=== PATIENT | female | born 1940 | race Caucasian/White ===

== ENCOUNTER 2017-05-08 10:18 | Inpatient (IN) | payer MEDICARE, OTHER ==
[2017-05-08] MEDS ORDERED: IPRATROPIUM/ALBUTEROL 3 ML NEB INH STA (11:10)
[2017-05-08] MEDS ORDERED: methylPREDNISolone SUCCINATE 125 MG/2 ML VIAL IVP STA (11:50)
[2017-05-08] MEDS ORDERED: cefTRIAXone 1 GM in SODIUM CHLORIDE 0.9% MINIBAG 100 ML IV STA (11:51)
[2017-05-08] MEDS ORDERED: SODIUM CHLORIDE 0.9% 500 ML IV ONE (11:51)
--- NOTE | 2017-05-08 11:53 | ED Physician Documentation ---
PD HPI DYSPNEA - Stated complaint Stated Complaint: SOA - Chief complaint Chief Complaint: Resp - History obtained from History obtained from: Patient, Family - History of Present Illness Timing - onset: How many days ago (7) Timing - onset during: Rest Timing - duration: Days (7) Timing - details: Gradual onset, Still present Inciting event(s): URI Improved by: Inhaler/neb, Steroids Worsened by: Exertion Associated symptoms: Cough, Wheezing Similar symptoms before: Diagnosis (COPD) Recently seen: Clinic - Additional information Additional information: Female with a history of COPD has developed cough and congestion she is producing yellow phlegm she is gone into see her doctor about 5 days ago was placed on a course of prednisone 40 mg per day and azithromycin. She felt she was doing somewhat better the following day and then on Thursday evening she began to have increasing shortness of breath increasing cough and this is persistently worsened over the last 2 days she is coming to the emergency department now for treatment. She really does not want to be in the hospital. She is coughing up thick yellow phlegm and does get some mucus plugging that causes worsening of her breathing. Review of Systems Constitutional: denies: Fever Eyes: denies: Decreased vision Ears: denies: Ear pain Nose: reports: Rhinorrhea / runny nose, Congestion Throat: denies: Sore throat Cardiac: denies: Chest pain / pressure, Palpitations Respiratory: reports: Dyspnea, Cough, Wheezing GI: denies: Abdominal Pain, Nausea, Vomiting : denies: Dysuria Skin: denies: Rash Musculoskeletal: denies: Neck pain, Back pain, Extremity pain Neurologic: reports: Generalized weakness. denies: Focal weakness, Numbness PD PAST MEDICAL HISTORY - Past Medical History Cardiovascular: None, Other Respiratory: COPD, Shortness of breath Endocrine/Autoimmune: HyPOthyroidism GI: None : None HEENT: None, Other Psych: None, Claustrophobia Musculoskeletal: Osteoarthritis Derm: None - Past Surgical History Past Surgical History: Yes General: Other HEENT: Tonsil/Adenoidectomy, Other - Present Medications Home Medications: Ambulatory Orders Medication Instructions Recorded Confirmed Thyroid,Pork [[place] Thyroid] 90 mcg ORAL DAILY 10/26/13 06/11/15 Aspirin [Adult Low Dose Aspirin EC] 81 mg PO DAILY 06/11/15 06/11/15 Cholecalciferol (Vitamin D3) 1,000 unit PO DAILY 06/11/15 06/11/15 [Vitamin D] Gabapentin 0 mg PO 05/08/17 - Allergies Allergies/Adverse Reactions: Allergies Allergy/AdvReac Type Severity Reaction Status Date / Time pollen extracts Allergy Mild Respiratory Verified 05/08/17 10:33 - Social History Does the pt smoke?: Yes Smoking Status: Current every day smoker Does the pt drink ETOH?: No PD ED PE NORMAL - Vitals Vital signs reviewed: Yes (hypertensive and hypoxic) - General General: Alert and oriented X 3, Well developed/nourished, Other (tachypneic at rest talking in abreviated sentences nasal quality to the voice. ) - HEENT HEENT: Atraumatic, PERRL, EOMI, Other (both TM's are inflamed with rounding of the umbo. The mucous membranes are dry) - Neck Neck: Supple, no meningeal sign, No bony TTP - Cardiac Cardiac: RRR, No murmur - Respiratory Respiratory: Other (Tachypnea with tight wheezes and rhonchi scattered throughout.) - Abdomen Abdomen: Soft, Non tender - Back Back: No CVA TTP, No spinal TTP - Derm Derm: Normal color, Warm and dry, No rash - Extremities Extremities: No deformity, No edema - Neuro Neuro: Alert and oriented X 3, No motor deficit, No sensory deficit, Normal speech Eye Opening: Spontaneous Motor: Obeys Commands Verbal: Oriented GCS Score: 15 - Psych Psych: Normal mood, Normal affect Results - Vitals Vitals: Vital Signs - 24 hr 05/08/17 05/08/17 05/08/17 10:23 11:26 13:11 Temperature 36.7 C Heart Rate 86 71 80 Respiratory 24 20 20 Rate Blood Pressure 189/74 H 129/79 O2 Saturation 91 L 95 05/08/17 05/08/17 13:23 15:26 Temperature Heart Rate 80 80 Respiratory 20 18 Rate Blood Pressure O2 Saturation Oxygen O2 Source Room air - EKG (time done) 1032 Rate: Rate (enter#) (73) Rhythm: NSR Intervals: RBBB Ischemia: Normal ST segments Compare to prior EKG: Old EKG unavailable Computer interpretation: Agree with computer - Labs Labs: Laboratory Tests 05/08/17 05/08/17 05/08/17 12:10 12:10 12:10 WBC 20.1 H RBC 4.07 L Hgb 12.4 Hct 36.6 L MCV 89.9 MCH 30.5 MCHC 33.9 RDW 13.5 Plt Count 460 H MPV 6.6 L Neut # Not Reportable Lymph # Not Reportable [place] # Not Reportable Eos # Not Reportable Baso # Not Reportable Absolute Nucleated RBC Not Reportable Total Counted 100 Band Neuts % (Manual) 3 Reactive Lymphs % (Man) 10 Abnorm Lymph % (Manual) 0 Myelocytes % 2 H Nucleated RBC % Not Reportable Neutrophils # (Manual) 16.3 H Lymphocytes # (Manual) 2.6 Monocytes # (Manual) 0.8 Eosinophils # (Manual) 0.0 Basophils # (Manual) 0.0 Differential Comment MANUAL DIFFERENTIAL Platelet Morphology RARE GIANT PLATELETS RBC Morph Micro Appear 1+ ANISOCYTOSIS Sodium 136 Potassium 2.5 L* Chloride 100 L Carbon Dioxide 26 Anion Gap 10.0 BUN 16 Creatinine 0.7 Estimated GFR (MDRD) 81 L Glucose 129 H Calcium 9.3 Total Bilirubin 0.6 AST 24 ALT 24 Alkaline Phosphatase 80 Troponin I < 0.04 Total Protein 7.4 Albumin 3.8 Globulin 3.6 Albumin/Globulin Ratio 1.1 Lipase 23 Urine Color Urine Clarity Urine pH Ur Specific [place] Urine Protein Urine Glucose (UA) Urine Ketones Urine Occult Blood Urine Nitrite Urine Bilirubin Urine Urobilinogen Ur Leukocyte Esterase Ur Microscopic Review Urine Culture Comments 05/08/17 14:10 WBC RBC Hgb Hct MCV MCH MCHC RDW Plt Count MPV Neut # Lymph # [place] # Eos # Baso # Absolute Nucleated RBC Total Counted Band Neuts % (Manual) Reactive Lymphs % (Man) Abnorm Lymph % (Manual) Myelocytes % Nucleated RBC % Neutrophils # (Manual) Lymphocytes # (Manual) Monocytes # (Manual) Eosinophils # (Manual) Basophils # (Manual) Differential Comment Platelet Morphology RBC Morph Micro Appear Sodium Potassium Chloride Carbon Dioxide Anion Gap BUN Creatinine Estimated GFR (MDRD) Glucose Calcium Total Bilirubin AST ALT Alkaline Phosphatase Troponin I Total Protein Albumin Globulin Albumin/Globulin Ratio Lipase Urine Color YELLOW Urine Clarity CLEAR Urine pH 5.5 Ur Specific [place] <=1.005 Urine Protein NEGATIVE Urine Glucose (UA) NEGATIVE Urine Ketones NEGATIVE Urine Occult Blood NEGATIVE Urine Nitrite NEGATIVE Urine Bilirubin NEGATIVE Urine Urobilinogen 0.2 (NORMAL) Ur Leukocyte Esterase NEGATIVE Ur Microscopic Review NOT INDICATED Urine Culture Comments NOT INDICATED - Rads (name of study) 2 veiw chest Radiology: Prelim report reviewed (Impression: 1. Hyperinflated lungs consistent with obstructive lung disease. No acute superimposed process is appreciated.), EMP read indepedently, See rad report Procedures - IVC sono (time) 1145 Bedside IVC sono: IVC measures (cm) (1.00), IVC collapsed c insp (cm) (0.42), Dehydration (mild est 500ml deficit) PD MEDICAL DECISION MAKING - ED course Complexity details: reviewed old records, reviewed results, re-evaluated patient , considered differential, d/w patient, d/w family ED course: 77-year-old female with a history of COPD has exacerbation of her COPD and a cough producing phlegm. She is not improved on the fourth day of azithromycin and prednisone at 40 mg per day. Here in the emergency department an IV is begun she is given 125 mg of Solu-Medrol, rocephin 1gm IV and a DuoNeb treatment is administered. She has improvement with treatment and wheezing is more apparent now. She requires repeat treatments and struggles to get to the bathroom. Her room air sat is up to 91-92 %. Her respiratory rate improves but she remains tachypneic. Her CXR appears hazy in the right base but not consolidated. Her WBC is markedly elevated and her potassium is low. Despite prolonged treatment in the ED the patient remains tachypneic with wheezing and admission is sought. Departure - Departure Disposition: ED Place in Observation Clinical Impression: COPD with exacerbation
[2017-05-08 12:30] LABS: BASOPHILS % (AUTO) 0.1 %; HGB - HEMOGLOBIN 12.4 g/dL (12.0-16.0); MEAN CORPUSCULAR HEMOGLOBIN 30.5 pg (27.0-31.0); MEAN CORPUSCULAR HGB CONC 33.9 g/dL (32.0-36.0); MEAN CORPUSCULAR VOLUME 89.9 fL (81.0-99.0); MEAN PLATELET VOLUME 6.6 fL (7.9-10.8); MONOCYTES % (AUTO) 4.7 %; NEUTROPHILS % (AUTO) 83.2 %; PLT - PLATELET COUNT 460 10^3/uL (130-450); RED BLOOD COUNT 4.07 10^6/uL (4.20-5.40); RED CELL DISTRIBUTION WIDTH 13.5 % (12.0-15.0); WHITE BLOOD COUNT 20.1 x10^3/uL (4.8-10.8)
--- NOTE | 2017-05-08 12:30 | XRAY Report ---
EXAM: CHEST RADIOGRAPHY EXAM DATE: 05/08/2017 12:09 PM. CLINICAL HISTORY: Wheezes and rhonchi. COMPARISON: 06/11/2015. TECHNIQUE: 2 views. FINDINGS: Lungs/Pleura: The lungs are hyperinflated with flattening of the diaphragms. No acute infiltrate or c onsolidation is appreciated. No pneumothorax or pleural effusion is evident. Mediastinum: Normal heart size. Atherosclerotic calcification in the aortic arch. Other: Interval cervical spine surgery. IMPRESSION: 1. Hyperinflated lungs consistent with obstructive lung disease. 2. No acute superimposed process is appreciated. [facility] Referring Provider Line: [phone] SITE ID: [id number]
[2017-05-08 12:37] LABS: ABNORMAL LYMPHS % (MANUAL) 0 %
[2017-05-08 12:39] LABS: ALBUMIN 3.8 g/dL (3.2-5.5); ALBUMIN/GLOBULIN RATIO 1.1 (1.0-2.2); BILIRUBIN,TOTAL 0.6 mg/dL (0.2-1.0); CALCIUM 9.3 mg/dL (8.5-10.3); CREATININE 0.7 mg/dL (0.4-1.0); TOTAL PROTEIN 7.4 g/dL (6.7-8.2)
[2017-05-08] MEDS ORDERED: ALBUTEROL NEB 2.5 MG/3 ML INH STA ×2 (12:59→15:11)
[2017-05-08 13:02] LABS: BAND NEUTROPHILS % (MANUAL) 3 %; LYMPHOCYTES # (MANUAL) 2.6 10^3/uL (1.5-3.5); LYMPHOCYTES % (MANUAL) 3 %; MONOCYTES # (MANUAL) 0.8 10^3/uL (0.0-1.0); MYELOCYTES % (MANUAL) 2 %; NEUTROPHILS # (MANUAL) 16.3 10^3/uL (1.5-6.6); NEUTROPHILS % (MANUAL) 78 %
[2017-05-08 13:03] LABS: DIFFERENTIAL COMMENT MANUAL DIFFERENTIAL; RBC MORPHOLOGY (MULTIPLE) 1+ ANISOCYTOSIS (NORMAL)
[2017-05-08 13:04] LABS: PLATELET MORPHOLOGY RARE GIANT PLATELETS (NORMAL)
[2017-05-08] MEDS ORDERED: POTASSIUM BICARB 25 MEQ TABLET PO STA ×2 (13:09→14:04)
[2017-05-08 14:46] LABS: BILIRUBIN,URINE NEGATIVE (NEGATIVE); GLUCOSE, URINE (UA) NEGATIVE (NEGATIVE); KETONES,URINE (UA) NEGATIVE (NEGATIVE); LEUKOCYTE ESTERASE, URINE NEGATIVE (NEGATIVE); NITRITE,URINE NEGATIVE (NEGATIVE); OCCULT BLOOD,URINE NEGATIVE (NEGATIVE); PH,URINE 5.5 PH (5.0-7.5); PROTEIN,URINE NEGATIVE (NEGATIVE); UROBILINOGEN,URINE 0.2 (NORMAL) E.U./dL (NORMAL)
[2017-05-08 14:48] LABS: CLARITY,URINE CLEAR (CLEAR)
[2017-05-08] MEDS ORDERED: POTASSIUM CHLORIDE 20 MEQ TABLET PO STA (15:11)
[2017-05-08] MEDS ORDERED: SODIUM CHLORIDE FLUSH 0.9% 10 ML SYRINGE IVP PRN (16:23)
--- NOTE | 2017-05-08 16:27 | HISTORY & PHYSICAL EXAMINATION ---
Chief Complaint - Chief Complaint Chief Complaint: SOB, productive cough History of Present Illness - Admitted From Admitted From:: ED - History Obtained From Records Reviewed: yes History obtained from: chart review, patient Exam Limitations: none - History of Present Illness HPI Comment/Other: Joyce Vail is a 77 year old female with a past medical history of hypothyroidism, PAD, status post stenting of the SFA in the RLE, osteoarthritis , sciatica, and life-long tobacco dependence. She presented to the ED after a gradual onset URI that has progressed despite outpatient treatment. She now complains of a productive cough with thick, yellow sputum, increased breathing efforts, but denies fever, chills, rashes or body aches. She notes that she and her daughter have just moved into a new place, so she has been exposed to some dust from unpacking. She continues to smoke up to 3/4's ppd, but generally smokes 1/2 ppd, although denies using in the "past few days" since she has barely been able to breath. She does not use long acting inhalers, nebulizers, or home oxygen. She may have had sick contacts as she also lives with her grandson and his 2 small children. She is resistant to a hospitalization, but at the time of this admission, she is agreeable due to her symptoms. History - Past Medical History Cardiovascular: reports: None, Hypertension, High cholesterol, Peripheral Vascular Disease Respiratory: reports: COPD, Emphysema, Shortness of breath Neuro: reports: Peripheral neuropathy, Tremors Endocrine/Autoimmune: reports: HyPOthyroidism GI: reports: Colon polyps, Chronic constipation, Hemorrhoids SAL[employer]: reports: None : reports: Nocturia HEENT: reports: None Psych: reports: Anxiety, Claustrophobia Musculoskeletal: reports: Osteoarthritis Derm: reports: None MRSA Hx?: No - Past Surgical History General: reports: Colonoscopy Cardiovascular: reports: Vascular surgery (right leg stenting for PVD) HEENT: reports: Tonsil/Adenoidectomy, Other - Family & Social History Family History: Mother: , Father: , Sister: , Brother: Family History Comment/Other: Patient's mother of natural causes, father of colon cancer and Parkinson's. Sister of complications of AAA, brother and had blood disorders. 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 [place] She lives with her daughter, grand son and great grand children with 2 dogs. She continues to smoke 1-1/2 ppd and has been a life long smoker. She denies alcohol or illicit drug use. She wishes to be a FULL code. - Substance History Use: Uses substance without health or social issues: Tobacco Use Issues: Anxiety Disorder Abuse: Recurrent use of substance despite neg consequences: NONE Abuse Issues: Anxiety Disorder Dependence: Experiences withdrawal or developed tolerances: Tobacco Dependence Issues: Anxiety Disorder Tobacco Details: Cigarettes - POLST Patient has POLST: No POLST Status: DNR Meds/Allgy - Home Medications Home Medications: Ambulatory Orders Medication Instructions Recorded Confirmed Thyroid,Pork [[place] Thyroid] 90 mg ORAL DAILY 10/26/13 05/08/17 Aspirin [Adult Low Dose Aspirin EC] 81 mg PO DAILY 06/11/15 05/08/17 Cholecalciferol (Vitamin D3) 1,000 unit PO DAILY 06/11/15 05/08/17 [Vitamin D] Albuterol Sulf [Ventolin Hfa 2 puffs INH Q4H PRN 05/08/17 05/08/17 Inhaler] Gabapentin 300 mg PO TID 05/08/17 05/08/17 predniSONE [Prednisone] 20 mg PO [id number] 05/08/17 05/08/17 Docusate Sodium 100 mg PO QPM PRN 05/09/17 05/09/17 Senna [Senokot] 8.6 - 17.2 mg PO QPM 05/09/17 05/09/17 - Allergies Allergies/Adverse Reactions: Allergies Allergy/AdvReac Type Severity Reaction Status Date / Time pollen extracts Allergy Mild Respiratory Verified 05/08/17 10:33 Review of Systems - Constitutional Constitutional: reports: Fatigue, Weakness - Ears, Nose & Throat Ears, Nose & Throat: reports: Dentures - Cardiovascular Cariovascular: reports: Exertional dyspnea, Decr. exercise tolerance - Respiratory Respiratory: reports: Cough, Sputum production, Wheezing, SOB at rest, SOB with exertion - Gastrointestinal Gastrointestinal: reports: Constipation - Genitourinary Genitourinary: reports: Nocturia - Musculoskeletal Musculoskeletal: reports: Muscle aches, Joint swelling - Integumentary Integumentary: reports: Dryness - Neurological Neurological: reports: General weakness - Psychiatric Psychiatric: reports: Anxiety - Hematologic/Lymphatic Hematologic/Lymphatic: reports: Recurrent infections - All Other Systems All Other Systems: reports: Reviewed and negative Exam - Vital Signs Reviewed Vital Signs: Yes Vital Signs: Vital Signs x48h Temp Pulse Resp BP Pulse Ox 05/08/17 15:26 80 18 05/08/17 13:23 80 20 05/08/17 13:11 80 20 129/79 95 05/08/17 11:26 71 20 05/08/17 10:23 36.7 C 86 24 189/74 H 91 L - Physical Exam General Appearance: positive: No acute distress, Alert Eyes Bilateral: positive: Normal inspection, PERRL ENT: positive: ENT inspection nml, Pharynx nml, Dry mucous membranes Neck: positive: Nml inspection, Thyroid nml, No JVD Respiratory: positive: Chest non-tender, No respiratory distress, Wheezes, Other (bilateral crackles) Cardiovascular: positive: Regular rate & rhythm, Systolic murmur, Decreased pulse(s) Peripheral Pulses: positive: 1+ Abdomen: positive: Non-tender, No organomegaly, Nml bowel sounds Back: positive: Nml inspection Skin: positive: No rash, Warm, Dry Extremities: positive: Non-tender, Full ROM, Nml appearance, No pedal edema, Joint swelling Neurologic/Psychiatric: positive: Oriented x3, CN's nml (2-12), Motor nml, Sensory loss, Depressed mood/affect Reflexes: Bicep (R): 2+, Bicep (L): 2+ Conclusion/Plan - Problem List (1) COPD with exacerbation Conclusion/Plan: The patient was last hospitalized for COPD exacerbation in 2016. She likely has COPD from her over 50 years of tobacco dependence. She does not use oxygen or long acting inhalers at home. She saw her PCP a few days ago who prescribed steroids and antibiotics, but she did not improve. She admits to recently moving and unpacking which may have caused some extra dust that got into her lungs. She now requires oxygen and increased breathing efforts on exam. She also has pronounced wheezing and crackles in her low bases. Plan: Start IV steroids, continuous oxygen, telemetry to watch for heart strain , and IV antibiotics based on chest x-ray. (2) Cough Conclusion/Plan: Patient has had a productive cough for the past several days and is thick yellow /green. She has had difficulty sleeping. Plan: Flutter valve per RT, nebs, IV steroids. Treat COPD exacerbation. (3) Tobacco dependence Conclusion/Plan: The patient admits to tobacco dependence since age 19. The tobacco abuse likely caused her COPD. The patient states that she has not smoked for the past few days since her breathing became worse. She also notes that they have just moved and this may not be a good time to quit smoking due to the stress. Plan: Nicotine 14 has been prescribed to be used as a patch. We will continue to encourage smoking cessation. (4) Hypoxia Conclusion/Plan: Patient was noted to have low oxygen saturations and increased breathing efforts. (5) Hypokalemia Conclusion/Plan: Patient was found to have a low potassium of only 2.5 at the time of admission. She denies nausea, vomiting or diarrhea. This is likely due to poor PO intake over the past few days. Plan: Replace using primarily PO replacement and re-check labs in the AM. - Lab Results Lab results reviewed: Yes Fish Bones: 05/09/17 06:13 05/09/17 06:13 - Diagnostic Imaging Results Diagnostic Imaging Results: positive: Prelim report reviewed, Final report reviewed - EKG Results EKG Interpreted Independently: Yes Core Measures - Anticipated LOS I expect patient to be DC'd or transferred within 96 hours.: Yes - DVT/VTE - Prophylaxis VTE/DVT Device ordered at admit?: Yes VTE/DVT Prophylaxis med ordered at admit?: Yes - Stroke - Rehab Assessment Rehab services assessment to be ordered?: No Not Ordered - Medical Reason: Contraindicated - AMI - Statin at Admit Aspirin Prescribed on Admit: Yes
[2017-05-08] MEDS ORDERED: POTASSIUM CHLORIDE 20 MEQ TABLET PO SCH (19:53)
[2017-05-08] MEDS ORDERED: IPRATROPIUM/ALBUTEROL 3 ML NEB INH PRN (19:59)
[2017-05-08] MEDS: NICOTINE 14 MG PATCH TOP SCH (21:16)
[2017-05-08] MEDS: methylPREDNISolone SUCCINATE 40 MG/ML VIAL IVP SCH (21:17)
[2017-05-08] MEDS: SODIUM CHLORIDE FLUSH 0.9% 10 ML SYRINGE IVP SCH (21:17)
[2017-05-08] MEDS: GABAPENTIN 300 MG CAPSULE PO SCH (21:23)
[2017-05-08] MEDS: IPRATROPIUM/ALBUTEROL 3 ML NEB INH SCH (22:15)
[2017-05-09] MEDS: SODIUM CHLORIDE FLUSH 0.9% 10 ML SYRINGE IVP SCH ×4 (00:03→23:47)
[2017-05-09] MEDS: methylPREDNISolone SUCCINATE 40 MG/ML VIAL IVP SCH ×2 (05:03→21:49)
[2017-05-09] MEDS: GABAPENTIN 300 MG CAPSULE PO SCH ×4 (05:04→21:48)
[2017-05-09 06:29] LABS: BASOPHILS % (AUTO) 0.1 %; HGB - HEMOGLOBIN 11.1 g/dL (12.0-16.0); LYMPHOCYTES % (AUTO) 8.8 %; MEAN CORPUSCULAR HEMOGLOBIN 29.3 pg (27.0-31.0); MEAN CORPUSCULAR HGB CONC 32.4 g/dL (32.0-36.0); MEAN CORPUSCULAR VOLUME 90.3 fL (81.0-99.0); MEAN PLATELET VOLUME 6.3 fL (7.9-10.8); MONOCYTES % (AUTO) 3.7 %; NEUTROPHILS % (AUTO) 87.4 %; PLT - PLATELET COUNT 410 10^3/uL (130-450); RED BLOOD COUNT 3.78 10^6/uL (4.20-5.40); RED CELL DISTRIBUTION WIDTH 14.1 % (12.0-15.0); WHITE BLOOD COUNT 22.3 x10^3/uL (4.8-10.8)
[2017-05-09 06:33] LABS: ABNORMAL LYMPHS % (MANUAL) 0 %
[2017-05-09 06:43] LABS: ALBUMIN 3.2 g/dL (3.2-5.5); BILIRUBIN,TOTAL 0.4 mg/dL (0.2-1.0); CREATININE 0.6 mg/dL (0.4-1.0); MAGNESIUM 1.8 mg/dL (1.7-2.8); TOTAL PROTEIN 6.3 g/dL (6.7-8.2)
[2017-05-09 06:53] LABS: BAND NEUTROPHILS % (MANUAL) 5 %; DIFFERENTIAL COMMENT MANUAL DIFFERENTIAL; EOSINOPHILS # (MANUAL) 0.2 10^3/uL (0-0.7); LYMPHOCYTES # (MANUAL) 2.5 10^3/uL (1.5-3.5); LYMPHOCYTES % (MANUAL) 11 %; METAMYELOCYTES % (MANUAL) 2 %; MONOCYTES # (MANUAL) 0.4 10^3/uL (0.0-1.0); MYELOCYTES % (MANUAL) 1 %; NEUTROPHILS # (MANUAL) 18.5 10^3/uL (1.5-6.6); NEUTROPHILS % (MANUAL) 78 %; PLATELET ESTIMATE, MANUAL NORMAL (130-450,000) (NORMAL); RBC MORPHOLOGY (MULTIPLE) NORMAL APPEARANCE (NORMAL)
[2017-05-09] MEDS ORDERED: THYROID 60 MG TABLET PO SCH (09:00)
[2017-05-09] MEDS: IPRATROPIUM/ALBUTEROL 3 ML NEB INH SCH ×2 (09:02→19:00)
[2017-05-09] MEDS: ASPIRIN EC 81 MG TABLET PO SCH (09:21)
[2017-05-09] MEDS: POLYETHYLENE GLYCOL 3350 17 GM PACKET PO SCH (09:23)
[2017-05-09] MEDS: NICOTINE 14 MG PATCH TOP SCH (09:23)
[2017-05-09] MEDS ORDERED: DOCUSATE SODIUM 250 MG CAPSULE PO SCH (09:27)
[2017-05-09] MEDS: amLODIPine 5 MG TABLET PO SCH (09:56)
[2017-05-09] MEDS ORDERED: SENNA 8.6 MG TABLET PO SCH ×2 (10:00→21:00)
[2017-05-09] MEDS ORDERED: guaiFENesin 600 MG TABLET PO SCH (11:00)
[2017-05-09] MEDS ORDERED: methylPREDNISolone SUCCINATE 40 MG/ML VIAL IVP SCH (11:01)
[2017-05-09] MEDS ORDERED: LEVALBUTEROL 1.25 MG/3 ML NEB INH PRN (11:16)
--- NOTE | 2017-05-09 11:16 | PROVIDER PROGRESS NOTE ---
Subjective - Prog Note Date Prog Note Date: 05/09/17 Prog Note Time: 11:14 - Subjective Pt reports feeling: No change Subjective: Joyce requests that she sees "a real doctor". She admits to very poor sleep overnight and talks about being frustrated with lack of progress. She denies chest pain, N/V or an increased cough. She continues to have a productive cough that is noted to have thick, yellow sputum. Current Medications - Current Medications Current Medications: Active Medications Acetaminophen/Hydrocodone Bitart ([place] 5/325) 1 tab PO Q4HR PRN PRN Reason: PAIN Amlodipine Besylate (Norvasc) 5 mg PO DAILY [facility] Last Admin: 05/09/17 09:56 Dose: 5 mg Aspirin (Ecotrin) 81 mg PO DAILY [facility] Last Admin: 05/09/17 09:21 Dose: 81 mg Docusate Sodium (Colace 100mg Capsule) 100 mg PO QPM PRN PRN Reason: HARD STOOL Gabapentin (Neurontin) 300 mg PO 0800,1400,2100 [facility] Last Admin: 05/09/17 14:47 Dose: 300 mg Guaifenesin (Mucinex) 600 mg PO TID [facility] Ceftriaxone Sodium 1 gm/ (Sodium Chloride) 100 mls @ 200 mls/hr IV Q24H [facility] Last Infusion: 05/09/17 13:42 Dose: Infused Levalbuterol HCl (Xopenex) 1.25 mg INH Q2H PRN PRN Reason: Shortness of Air/Wheezing Levalbuterol HCl (Xopenex) 1.25 mg INH RTQID [facility] Last Admin: 05/09/17 16:18 Dose: 1.25 mg Methylprednisolone (Solu-Medrol (40mg Vial)) 40 mg IVP BID [facility] Nicotine (Nicoderm) 1 patch TOP DAILY [facility] Last Admin: 05/09/17 09:23 Dose: Not Given [place] Thyroid 90 Mg (Tab) 1 each PO DAILY [facility] Polyethylene Glycol (Miralax) 17 gm PO DAILY [facility] Last Admin: 05/09/17 09:23 Dose: Not Given Senna (Senokot) 17.2 mg PO QPM [facility] Sodium Chloride (Normal Saline Flush 0.9%) 10 ml IVP PRN PRN PRN Reason: NEEDED PER PROVIDER ORDERS Last Admin: 05/09/17 05:03 Dose: 10 ml Sodium Chloride (Normal Saline Flush 0.9%) 10 ml IVP 0100,0900,1700 [facility] Last Admin: 05/09/17 09:23 Dose: 10 ml Thyroid,Pork [[place] Thyroid] 90 mg ORAL DAILY 10/26/13 Aspirin [Adult Low Dose Aspirin EC] 81 mg PO DAILY 06/11/15 Cholecalciferol (Vitamin D3) [Vitamin D] 1,000 unit PO DAILY 06/11/15 Albuterol Sulf [Ventolin Hfa Inhaler] 2 puffs INH Q4H PRN 05/08/17 Gabapentin 300 mg PO TID 05/08/17 predniSONE [Prednisone] 20 mg PO [id number] 05/08/17 Docusate Sodium 100 mg PO QPM PRN 05/09/17 Senna [Senokot] 8.6 - 17.2 mg PO QPM 05/09/17 Objective - Vital Signs/Intake & Output Reviewed Vital Signs: Yes Vital Signs: Vital Signs x48h Temp Pulse Pulse Resp BP BP Pulse Ox 05/09/17 09:33 189/74 H 05/09/17 09:02 72 20 05/09/17 07:48 70 195/71 H 05/09/17 07:23 36.3 C L 67 20 96 05/09/17 05:50 70 188/90 H 05/09/17 05:08 36.4 C L 81 16 94 Intake & Output: Intake & Output 05/06/17 05/07/17 05/08/17 05/09/17 23:59 23:59 23:59 23:59 Intake Total 200 440 Balance 200 440 - Objective General Appearance: positive: Alert, Moderate distress, Anxious Eyes Bilateral: positive: Normal inspection, PERRL ENT: positive: ENT inspection nml, Pharynx nml, Dry mucous membranes Neck: positive: Nml inspection, Thyroid nml, No JVD Respiratory: positive: Chest non-tender, Wheezes, Rhonchi Cardiovascular: positive: Regular rate & rhythm, No gallop, Decreased pulse(s) Peripheral Pulses: 1+ Radial (R), 1+ Radial (L) Abdomen: positive: Non-tender, No organomegaly, Nml bowel sounds Back: positive: Nml inspection Skin: positive: No rash, Warm, Dry Extremities: positive: Non-tender, Full ROM, Nml appearance, No pedal edema Neurologic/Psychiatric: positive: Oriented x3, CN's nml (2-12), Motor nml, Sensation nml, Depressed mood/affect Reflexes: Bicep (R): 2+, Bicep (L): 2+ - Lab Results Fish Bones: 05/09/17 06:13 05/09/17 06:13 Other Labs: Lab Results x24hrs 05/09/17 05/09/17 05/09/17 Range/Units 06:17 06:17 06:13 WBC (4.8-10.8) x10^3/uL RBC (4.20-5.40) 10^6/uL Hgb (12.0-16.0) g/dL Hct (37.0-47.0) % MCV (81.0-99.0) fL MCH (27.0-31.0) pg MCHC (32.0-36.0) g/dL RDW (12.0-15.0) % Plt Count (130-450) 10^3/uL MPV (7.9-10.8) fL Neut # Lymph # [place] # Eos # Baso # Absolute Nucleated RBC Total Counted Band Neuts % (Manual) (0 - 10) % Abnorm Lymph % (Manual) % Metamyelocytes % ( - 0) % Myelocytes % ( - 0) % Nucleated RBC % Neutrophils # (Manual) (1.5-6.6) 10^3/uL Lymphocytes # (Manual) (1.5-3.5) 10^3/uL Monocytes # (Manual) (0.0-1.0) 10^3/uL Eosinophils # (Manual) (0-0.7) 10^3/uL Basophils # (Manual) (0-0.1) 10^3/uL Differential Comment Platelet Estimate (NORMAL) RBC Morph Micro Appear (NORMAL) Sodium 137 (135-145) mmol/L Potassium 4.3 (3.5-5.0) mmol/L Chloride 105 (101-111) mmol/L Carbon Dioxide 23 (21-32) mmol/L Anion Gap 9.0 (6-13) BUN 19 (6-20) mg/dL Creatinine 0.6 (0.4-1.0) mg/dL Estimated GFR (MDRD) 97 (>89) Glucose 131 H (70-100) mg/dL Calcium 9.0 (8.5-10.3) mg/dL Magnesium 1.8 (1.7-2.8) mg/dL Total Bilirubin 0.4 (0.2-1.0) mg/dL AST 17 (10-42) IU/L ALT 21 (10-60) IU/L Alkaline Phosphatase 71 (42-121) IU/L Troponin I 0.06 (<0.49) ng/mL B-Natriuretic Peptide 262 H (5-100) pg/mL Total Protein 6.3 L (6.7-8.2) g/dL Albumin 3.2 (3.2-5.5) g/dL Globulin 3.1 (2.1-4.2) g/dL Albumin/Globulin Ratio 1.0 (1.0-2.2) Influenza A (Rapid) (Negative) Influenza B (Rapid) (Negative) Influenza Types A,B Ag 05/09/17 05/08/17 Range/Units 06:13 21:28 WBC 22.3 H (4.8-10.8) x10^3/uL RBC 3.78 L (4.20-5.40) 10^6/uL Hgb 11.1 L (12.0-16.0) g/dL Hct 34.1 L (37.0-47.0) % MCV 90.3 (81.0-99.0) fL MCH 29.3 (27.0-31.0) pg MCHC 32.4 (32.0-36.0) g/dL RDW 14.1 (12.0-15.0) % Plt Count 410 (130-450) 10^3/uL MPV 6.3 L (7.9-10.8) fL Neut # Not Reportable Lymph # Not Reportable [place] # Not Reportable Eos # Not Reportable Baso # Not Reportable Absolute Nucleated RBC Not Reportable Total Counted 100 Band Neuts % (Manual) 5 (0 - 10) % Abnorm Lymph % (Manual) 0 % Metamyelocytes % 2 H ( - 0) % Myelocytes % 1 H ( - 0) % Nucleated RBC % Not Reportable Neutrophils # (Manual) 18.5 H (1.5-6.6) 10^3/uL Lymphocytes # (Manual) 2.5 (1.5-3.5) 10^3/uL Monocytes # (Manual) 0.4 (0.0-1.0) 10^3/uL Eosinophils # (Manual) 0.2 (0-0.7) 10^3/uL Basophils # (Manual) 0.0 (0-0.1) 10^3/uL Differential Comment MANUAL DIFFERENTIAL Platelet Estimate NORMAL (130-450,000) (NORMAL) RBC Morph Micro Appear NORMAL APPEARANCE (NORMAL) Sodium (135-145) mmol/L Potassium (3.5-5.0) mmol/L Chloride (101-111) mmol/L Carbon Dioxide (21-32) mmol/L Anion Gap (6-13) BUN (6-20) mg/dL Creatinine (0.4-1.0) mg/dL Estimated GFR (MDRD) (>89) Glucose (70-100) mg/dL Calcium (8.5-10.3) mg/dL Magnesium (1.7-2.8) mg/dL Total Bilirubin (0.2-1.0) mg/dL AST (10-42) IU/L ALT (10-60) IU/L Alkaline Phosphatase (42-121) IU/L Troponin I (<0.49) ng/mL B-Natriuretic Peptide (5-100) pg/mL Total Protein (6.7-8.2) g/dL Albumin (3.2-5.5) g/dL Globulin (2.1-4.2) g/dL Albumin/Globulin Ratio (1.0-2.2) Influenza A (Rapid) Negative (Negative) Influenza B (Rapid) Negative (Negative) Influenza Types A,B Ag - - Diagnostic Imaging Diagnostic Imaging Results: positive: Final report reviewed Assessment/Plan - Problem List (1) COPD with exacerbation Impression: The patient was last hospitalized for COPD exacerbation in 2016. She likely has COPD from her over 50 years of tobacco dependence. She does not use oxygen or long acting inhalers at home. She saw her PCP a few days ago who prescribed steroids and antibiotics, but she did not improve. She admits to recently moving and unpacking which may have caused some extra dust that got into her lungs. She now requires oxygen and increased breathing efforts on exam. She also has pronounced wheezing and crackles in her low bases. Echo results today did not reveal right heart strain and pulmonary pressure was only mildly elevated at 32mmHg. Plan: Continue IV steroids, continuous oxygen, and continue IV antibiotics. (2) Cough Impression: Patient has had a productive cough for the past several days and is thick yellow /green. She has had difficulty sleeping, which has only worsened while hospitalized. Plan: Flutter valve per RT, nebs, IV steroids. Treat COPD exacerbation. (3) Tobacco dependence Impression: The patient admits to tobacco dependence since age 19. The tobacco abuse likely caused her COPD. The patient states that she has not smoked for the past few days since her breathing became worse. She also notes that they have just moved and this may not be a good time to quit smoking due to the stress. When reviewing her echo report today, she states that since the report was good , "there is no reason to stop smoking". Plan: Nicotine 14 has been prescribed to be used as a patch. We will continue to encourage smoking cessation. (4) Hypoxia Impression: Patient was noted to have low oxygen saturations and increased breathing efforts. A flutter valve has been ordered, but the patient states that "she does not believe that her insurance will pay for this". Plan: Continue to encourage flutter valve use, and provide oxygen, respiratory care. (5) Hypokalemia Impression: Patient was found to have a low potassium of only 2.5 at the time of admission. She denies nausea, vomiting or diarrhea. This is likely due to poor PO intake over the past few days. Today this was much improved to 4.3, so K+ supplements can be stopped. Plan: Continue to monitor labs. (6) Hypertension Impression: Patient denies previous hypertension, but tells conflicting stories of "once in a while being too high". I sat with the patient and described the risks involved with running too high. BNP was elevated today >200, so a one time dose of lasix IV was added. Plan: Check labs, continue antihypertensives. Qualifiers: Hypertension type: essential hypertension Qualified Code(s): I10 - Essential (primary) hypertension
[2017-05-09] MEDS ORDERED: HYDROcod/ACETAM 5/325 MG TABLET PO PRN (11:17)
[2017-05-09] MEDS ORDERED: DOCUSATE SODIUM 100 MG CAPSULE PO PRN (11:37)
[2017-05-09] MEDS ORDERED: cefTRIAXone 1 GM in SODIUM CHLORIDE 0.9% MINIBAG 100 ML IV SCH ×4 (13:00)
[2017-05-09] MEDS: LEVALBUTEROL 1.25 MG/3 ML NEB INH SCH ×3 (13:07→20:00)
[2017-05-09] MEDS ORDERED: FUROSEMIDE 40 MG/4 ML VIAL IVP SCH (17:05)
[2017-05-09] MEDS: guaiFENesin 600 MG TABLET PO SCH (21:49)
[2017-05-10] MEDS: guaiFENesin 600 MG TABLET PO SCH (06:02)
[2017-05-10 06:39] LABS: BASOPHILS % (AUTO) 0.6 %; HGB - HEMOGLOBIN 11.8 g/dL (12.0-16.0); MEAN CORPUSCULAR HEMOGLOBIN 30.1 pg (27.0-31.0); MEAN CORPUSCULAR HGB CONC 33.3 g/dL (32.0-36.0); MEAN CORPUSCULAR VOLUME 90.4 fL (81.0-99.0); MEAN PLATELET VOLUME 6.4 fL (7.9-10.8); MONOCYTES % (AUTO) 3.3 %; NEUTROPHILS % (AUTO) 88.1 %; PLT - PLATELET COUNT 492 10^3/uL (130-450); RED BLOOD COUNT 3.91 10^6/uL (4.20-5.40); RED CELL DISTRIBUTION WIDTH 13.7 % (12.0-15.0); WHITE BLOOD COUNT 25.7 x10^3/uL (4.8-10.8)
[2017-05-10 06:41] LABS: ABNORMAL LYMPHS % (MANUAL) 0 %
[2017-05-10 06:44] LABS: ALBUMIN 3.5 g/dL (3.2-5.5); BILIRUBIN,TOTAL 0.4 mg/dL (0.2-1.0); CALCIUM 9.3 mg/dL (8.5-10.3); CREATININE 0.7 mg/dL (0.4-1.0); TOTAL PROTEIN 6.9 g/dL (6.7-8.2)
[2017-05-10 07:06] LABS: BAND NEUTROPHILS % (MANUAL) 6 %; DIFFERENTIAL COMMENT MANUAL DIFFERENTIAL; LYMPHOCYTES # (MANUAL) 3.1 10^3/uL (1.5-3.5); LYMPHOCYTES % (MANUAL) 12 %; METAMYELOCYTES % (MANUAL) 1 %; MONOCYTES # (MANUAL) 0.5 10^3/uL (0.0-1.0); MYELOCYTES % (MANUAL) 2 %; NEUTROPHILS # (MANUAL) 21.3 10^3/uL (1.5-6.6); NEUTROPHILS % (MANUAL) 77 %; PLATELET ESTIMATE, MANUAL INCREASED (>450,000) (NORMAL); RBC MORPHOLOGY (MULTIPLE) NORMAL APPEARANCE (NORMAL)
[2017-05-10] MEDS: LEVALBUTEROL 1.25 MG/3 ML NEB INH SCH ×2 (07:43→11:00)
[2017-05-10 08:01] VITALS: BP 164/77
[2017-05-10] MEDS: GABAPENTIN 300 MG CAPSULE PO SCH (08:15)
[2017-05-10] MEDS: methylPREDNISolone SUCCINATE 40 MG/ML VIAL IVP SCH (08:15)
[2017-05-10] MEDS: NICOTINE 14 MG PATCH TOP SCH (08:16)
[2017-05-10] MEDS: ASPIRIN EC 81 MG TABLET PO SCH (08:16)
[2017-05-10] MEDS: amLODIPine 5 MG TABLET PO SCH (08:16)
[2017-05-10] MEDS ORDERED: ARMOUR THYROID 90 MG PO SCH (09:00)
[2017-05-10] MEDS: POLYETHYLENE GLYCOL 3350 17 GM PACKET PO SCH (09:44)
[2017-05-10] MEDS: SODIUM CHLORIDE FLUSH 0.9% 10 ML SYRINGE IVP SCH (09:44)
--- NOTE | 2017-05-10 10:34 | Discharge Plan ---
Discharge Plan Disposition: 01 Home, Self Care Condition: Fair Prescriptions: Amlodipine Besylate [Norvasc] 10 mg PO DAILY #30 tablet Azithromycin 500 mg PO DAILY 5 Days #5 tablet Budesonide/Formoterol Fumarate [Symbicort 160-4.5 Mcg Inhaler] 10.2 gm IH BID # 1 hfa.aer.ad guaiFENesin [Mucinex] 600 mg PO TID #120 tablet Inhaler, Assist Devices [Optichamber Radha] 1 each MC QID #1 spacer Levalbuterol [Xopenex] 1.25 mg INH Q4H PRN #120 neb PRN Reason: Shortness Of Air/Wheezing Nebulizer and Compressor [Ombra Compressor System] 1 each MC QID #1 each Nicotine 14 mg Patch [Nicoderm] 1 patch TOP DAILY #30 patch predniSONE [Prednisone] 20 mg PO DAILY 6 Days #9 tablet Diet: Low Sodium Activity Restrictions: No Restrictions Shower Restrictions: No Driving Restrictions: No Weight Bearing: Full Weight Instruction Topics: COPD, Chronic Lung Disease Prevent Infec, Disease Chronic Lung Quit Smoking, Coughing Techniques Dc, Breathing Pursed Lip Dc Additional Instructions or Follow Up instructions: You were admitted for COPD exacerbation and treated with IV steroids and IV antibiotics. You were given nebulizers and asked to use a flutter device. Please use your nebulizer machine for your as needed nebulizers, and use the long acting inhaler with a spacer device for every day use (being careful by rinsing your mouth after use). You were found to be hypertensive (increased blood pressure), so you were started on a calcium channel sanchez and this should continue since having high blood pressure puts you at a high risk of stroke or heart attack. Please finish all of your steroids and antibiotics. Please see your PCP within a week of this stay. No Smoking: If you smoke, Please STOP! Call for help. Follow-up with: Dayana Dickens MD [Primary Care Provider] -
--- NOTE | 2017-05-10 10:43 | DISCHARGE SUMMARY ---
Discharge Summary Admit Date: 05/08/17 Discharge Date: 05/10/17 Discharging Provider: ROSEANNA Walls Primary Care Provider: Dayana Dickens Code Status: Attempt Resuscitation Condition at Discharge: Good Discharge Disposition: 01 Home, Self Care - DIAGNOSES Admission Diagnoses: Chronic obstructive pulmonary disease with (acute) exacerbation (J44.1) Hypokalemia (E87.6) Tobacco use (Z72.0) Cough (R05) Discharge Diagnoses with Status of Each Condition: COPD exacerbation (J44.1) chronic, improved and stable. Hypokalemia (E87.6) resolved. Tobacco abuse (Z72.0) chronic, refusing cessation. Cough (R05) improved, but chronic. Hypertension (I10) chronic, new medications upon discharge. Non-compliance (Z91.19) chronic. - HPI History of Present Illness: Joyce Vail is a 77 year old female with a past medical history of hypothyroidism, PAD, status post stenting of the SFA in the RLE, osteoarthritis , sciatica, and life-long tobacco dependence. She presented to the ED after a gradual onset URI that has progressed despite outpatient treatment. She now complains of a productive cough with thick, yellow sputum, increased breathing efforts, but denies fever, chills, rashes or body aches. She notes that she and her daughter have just moved into a new place, so she has been exposed to some dust from unpacking. She continues to smoke up to 3/4's ppd, but generally smokes 1/2 ppd, although denies using in the "past few days" since she has barely been able to breath. She does not use long acting inhalers, nebulizers, or home oxygen. She may have had sick contacts as she also lives with her grandson and his 2 small children. She is resistant to a hospitalization, but at the time of this admission, she is agreeable due to her symptoms. - HOSPITAL COURSE Hospital Course: The following diagnoses were prevalent during this hospital stay: (1) COPD with exacerbation- The patient was last hospitalized for COPD exacerbation in 2016. She likely has COPD from her over 50 years of tobacco dependence. She does not use oxygen or long acting inhalers at home. She saw her PCP a few days ago who prescribed steroids and antibiotics, but she did not improve. She admits to recently moving and unpacking which may have caused some extra dust that got into her lungs. She now requires oxygen and increased breathing efforts on exam. She also has pronounced wheezing and crackles in her low bases. Echo results today did not reveal right heart strain and pulmonary pressure was only mildly elevated at 32mmHg. Patient was continued on IV steroids that was changed to PO for a tapering dose at home. She was given continuous oxygen that was weaned off at the time of discharge, and she was given continuous IV antibiotics that was changed to PO for discharge. (2) Cough- Patient has had a productive cough for the past several days and is thick yellow/green. She has had difficulty sleeping, which has only worsened while hospitalized. Patient was offered a flutter valve per RT, but refused stating that "this may not be covered by my insurance". She was given nebulizers, started on IV steroids that were changed to PO, and was treated for underlying COPD exacerbation. (3) Tobacco dependence- The patient admits to tobacco dependence since age 19. The tobacco abuse likely caused her COPD. The patient states that she has not smoked for the past few days since her breathing became worse. She also notes that they have just moved and this may not be a good time to quit smoking due to the stress. When reviewing her echo report today, she states that since the report was good, "there is no reason to stop smoking". Patient was given a nicotine 14 patch that was continued at home, but patient states that she will not pick this up and is not interested in quitting. She was continuously encouraged smoking cessation. (4) Hypoxia- Patient was noted to have low oxygen saturations and increased breathing efforts. A flutter valve has been ordered, but the patient states that "she does not believe that her insurance will pay for this". Patient was encouraged to use flutter valve, was provided oxygen, and respiratory care. (5) Hypokalemia- Patient was found to have a low potassium of only 2.5 at the time of admission. She denies nausea, vomiting or diarrhea. This is likely due to poor PO intake over the past few days. This gradually improved to 4.3, so K+ supplements were stopped. (6) Hypertension- Patient denies previous hypertension, but tells conflicting stories of "once in a while being too high". I sat with the patient and described the risks involved with running too high. BNP was elevated >200, so a one time dose of lasix IV was added. Labs were monitored and she was continued on Norvac 5mg that was increased to 10mg at the time of discharge. She was instructed to follow up with PCP. (7) non-compliance- Patient was resistant to certain techniques such as flutter valve use, timing of respiratory treatments, and the fact that she has confirmed hypertension that is not likely to "work itself out with time". She was counseled on disease processes and consequences of neglect. Disposition: Patient was discharged in stable condition and prescriptions were faxed to the pharmacy of choice, including a LABA and changing rescue inhalers to xopenex with a nebulizer machine and a spacer. - ALLERGIES Allergies/Adverse Reactions: Allergies Allergy/AdvReac Type Severity Reaction Status Date / Time pollen extracts Allergy Mild Respiratory Verified 05/08/17 10:33 - MEDICATIONS Home Medications: Ambulatory Orders Medication Instructions Recorded Confirmed Thyroid,Pork [[place] Thyroid] 90 mg ORAL DAILY 10/26/13 05/08/17 Aspirin [Adult Low Dose Aspirin EC] 81 mg PO DAILY 06/11/15 05/08/17 Cholecalciferol (Vitamin D3) 1,000 unit PO DAILY 06/11/15 05/08/17 [Vitamin D3] Gabapentin 300 mg PO TID 05/08/17 05/08/17 Docusate Sodium 100 mg PO QPM PRN 05/09/17 05/09/17 Senna [Senokot] 8.6 - 17.2 mg PO QPM 05/09/17 05/09/17 Amlodipine Besylate [Norvasc] 10 mg PO DAILY #30 tablet 05/10/17 Azithromycin 500 mg PO DAILY 5 Days #5 tablet 05/10/17 Budesonide/Formoterol Fumarate 10.2 gm IH BID #1 hfa.aer.ad 05/10/17 [Symbicort 160-4.5 Mcg Inhaler] Inhaler, Assist Devices 1 each MC QID #1 spacer 05/10/17 [Optichamber Radha] Levalbuterol [Xopenex] 1.25 mg INH Q4H PRN #120 neb 05/10/17 Nebulizer and Compressor [Ombra 1 each MC QID #1 each 05/10/17 Compressor System] Nicotine 14 mg Patch [Nicoderm] 1 patch TOP DAILY #30 patch 05/10/17 guaiFENesin [Mucinex] 600 mg PO TID #120 tablet 05/10/17 predniSONE [Prednisone] 20 mg PO DAILY 6 Days #9 tablet 05/10/17 - PHYSICAL EXAM AT DISCHARGE General Appearance: positive: No acute distress, Alert, Anxious Eyes Bilateral: positive: Normal inspection, PERRL ENT: positive: ENT inspection nml, Pharynx nml, Dry mucous membranes Neck: positive: Nml inspection, Thyroid nml, No JVD, Stiff neck Respiratory: positive: Chest non-tender, No respiratory distress, Wheezes, Rhonchi Cardiovascular: positive: Regular rate & rhythm, Systolic murmur, Decreased pulse(s) Peripheral Pulses: positive: 1+ Abdomen: positive: Non-tender, No organomegaly, Nml bowel sounds Back: positive: Nml inspection Skin: positive: No rash, Warm, Dry, Pallor Extremities: positive: Non-tender, Full ROM, Nml appearance, Pedal edema Neurologic/Psychiatric: positive: Oriented x3, CN's nml (2-12), Motor nml, Sensation nml, Depressed mood/affect Reflexes: Bicep (R): 2+, Bicep (L): 2+ - LABS Result Diagrams: 05/10/17 06:11 05/10/17 06:11 - DIAGNOSTIC IMAGING Diagnostic Imaging Results: Prelim report reviewed, Final report reviewed Diagnostic Imaging Results Comments: EXAM: CHEST RADIOGRAPHY EXAM DATE: 05/08/2017 12:09 PM. CLINICAL HISTORY: Wheezes and rhonchi. COMPARISON: 06/11/2015. TECHNIQUE: 2 views. FINDINGS: Lungs/Pleura: The lungs are hyperinflated with flattening of the diaphragms. No acute infiltrate or consolidation is appreciated. No pneumothorax or pleural effusion is evident. Mediastinum: Normal heart size. Atherosclerotic calcification in the aortic arch. Other: Interval cervical spine surgery. IMPRESSION: 1. Hyperinflated lungs consistent with obstructive lung disease. 2. No acute superimposed process is appreciated. ECHOCARDIOGRAM 05/09/17 LV size is normal with an EF of 65-70%. Impaired relaxation consistent with Grade I diastolic dysfunction. The mitral valve is thickened with significant restricted motion of the anterior leaflet, with out significant restricted motion of the anterior leaflet, without stenosis, as seen on prior exam 11/17/15. Normal RV systolic pressure <35 mmHg. The RVSP at rest is 32mmHg. - FOLLOW UP Follow Up: Disposition: 01 Home, Self Care Condition: Fair Prescriptions: Amlodipine Besylate [Norvasc] 10 mg PO DAILY #30 tablet Azithromycin 500 mg PO DAILY 5 Days #5 tablet Budesonide/Formoterol Fumarate [Symbicort 160-4.5 Mcg Inhaler] 10.2 gm IH BID # 1 hfa.aer.ad guaiFENesin [Mucinex] 600 mg PO TID #120 tablet Inhaler, Assist Devices [Optichamber Radha] 1 each MC QID #1 spacer Levalbuterol [Xopenex] 1.25 mg INH Q4H PRN #120 neb PRN Reason: Shortness Of Air/Wheezing Nebulizer and Compressor [Ombra Compressor System] 1 each MC QID #1 each Nicotine 14 mg Patch [Nicoderm] 1 patch TOP DAILY #30 patch predniSONE [Prednisone] 20 mg PO DAILY 6 Days #9 tablet Diet: Low Sodium Activity Restrictions: No Restrictions Shower Restrictions: No Driving Restrictions: No Weight Bearing: Full Weight Instruction Topics: COPD, Chronic Lung Disease Prevent Infec, Disease Chronic Lung Quit Smoking, Coughing Techniques Dc, Breathing Pursed Lip Dc Additional Instructions or Follow Up instructions: You were admitted for COPD exacerbation and treated with IV steroids and IV antibiotics. You were given nebulizers and asked to use a flutter device. Please use your nebulizer machine for your as needed nebulizers, and use the long acting inhaler with a spacer device for every day use (being careful by rinsing your mouth after use). You were found to be hypertensive (increased blood pressure), so you were started on a calcium channel sanchez and this should continue since having high blood pressure puts you at a high risk of stroke or heart attack. Please finish all of your steroids and antibiotics. Please see your PCP within a week of this stay. - TIME SPENT Time Spent in Discharge (Minutes): 45
--- NOTE | 2017-05-12 10:22 | MISCELLANEOUS PROVIDER NOTE ---
Miscellaneous Provider Note - - Note: Sputum cultures are positive for e. coli (could be a contaminate). Prescription for 5 day course sent to pharmacy. I received a call from her daughter Judith Wolf regarding nebulizer equipment. So a new prescription was sent directly to [facility] to obtain nebulizer. She states her mother is doing ok since discharge.
== END 2017-05-10 12:19 | disposition home or self-care (01) | DRG 192 ==
LOC: ED 10:18 → MS2 16:23
PROVIDERS: ADMIT Nurse Practitioner; ATTEND Nurse Practitioner
DX: J44.1 Chronic obstructive pulmonary disease with (acute) exacerbation (principal); R09.02 Hypoxemia; E86.0 Dehydration; F17.200 Nicotine dependence, unspecified, uncomplicated; J43.9 Emphysema, unspecified; E87.6 Hypokalemia; I10 Essential (primary) hypertension; E03.9 Hypothyroidism, unspecified; F17.218 Nicotine dependence, cigarettes, with other nicotine-induced disorders; F41.8 Other specified anxiety disorders; Z66 Do not resuscitate; Z91.19 Patient's noncompliance with other medical treatment and regimen; Z95.828 Presence of other vascular implants and grafts; Z77.110 Contact with and (suspected) exposure to air pollution; Z79.82 Long term (current) use of aspirin; Z63.79 Other stressful life events affecting family and household
CPT/HCPCS: 36415; 71046; 80053; 81001; 81003; 83690; 83735; 83880; 84484; 85025; 87040; 87070; 87077; 87086; 87205; 87275; 87276; 93005; 93306; 94640; 96365; 96375; 99283; 99284; 99285; 99406

== ENCOUNTER 2017-08-13 12:51 | Emergency (ER) | payer MEDICARE, OTHER ==
[2017-08-13 14:19] VITALS: BP 133/58
--- NOTE | 2017-08-13 15:06 | ED Physician Documentation ---
History of Present Illness - Stated complaint Stated Complaint: R LEG PX - Chief complaint Chief Complaint: Ext Problem - History obtained from History obtained from: Patient - History of Present Illness Timing: Other (Increasing over the past 2 months.) - Treatment prior to arrival Treatment prior to arrival: Ibuprofen, without relief. - Additonal information Additional information: The patient is a 77-year-old female with history of peripheral vascular disease , who presents with pain in her right groin, radiating down her right leg. She is status post right femoral stent placement in 2010, but states that the stent has become occluded, and she is scheduled for repeat vascular surgery on her right leg on August 31. She presents today because of pain in her right leg that has been increasing over the past 2 months, and is not being relieved with ibuprofen. She denies numbness or weakness in her lower extremities. Review of Systems Constitutional: denies: Fever Cardiac: denies: Chest pain / pressure Respiratory: denies: Dyspnea GI: denies: Abdominal Pain, Nausea, Vomiting : denies: Dysuria, Incontinent Skin: denies: Rash Musculoskeletal: reports: Extremity pain (right leg). denies: Back pain, Extremity swelling Neurologic: denies: Focal weakness, Numbness PD PAST MEDICAL HISTORY - Past Medical History Past Medical History: Yes Cardiovascular: None, Hypertension, High cholesterol, Peripheral Vascular Disease Respiratory: COPD, Emphysema, Shortness of breath Endocrine/Autoimmune: HyPOthyroidism GI: Colon polyps, Chronic constipation, Hemorrhoids [employer] COMMUNICATIONS: None : Nocturia HEENT: None Psych: Anxiety, Claustrophobia Musculoskeletal: Osteoarthritis Derm: None - Past Surgical History Past Surgical History: Yes General: Colonoscopy Ortho: Carpal Tunnel surgery, Other Cardiovascular: Vascular surgery HEENT: Tonsil/Adenoidectomy, Other - Present Medications Home Medications: Ambulatory Orders Medication Instructions Recorded Confirmed Thyroid,Pork [[place] Thyroid] 90 mg ORAL DAILY 10/26/13 05/08/17 Aspirin [Adult Low Dose Aspirin EC] 81 mg PO DAILY 06/11/15 05/08/17 Cholecalciferol (Vitamin D3) 1,000 unit PO DAILY 06/11/15 05/08/17 [Vitamin D3] Gabapentin 300 mg PO TID 05/08/17 05/08/17 Senna [Senokot] 8.6 - 17.2 mg PO QPM 03/17/18 03/17/18 Amlodipine Besylate [Norvasc] 10 mg PO DAILY #30 tablet 05/10/17 Budesonide/Formoterol Fumarate 10.2 gm IH BID #1 hfa.aer.ad 05/10/17 [Symbicort 160-4.5 Mcg Inhaler] Inhaler, Assist Devices 1 each MC QID #1 spacer 05/10/17 [Optichamber Radha] Levalbuterol [Xopenex] 1.25 mg INH Q4H PRN #120 neb 05/10/17 Nebulizer and Compressor [Ombra 1 each MC QID #1 each 05/10/17 Compressor System] guaiFENesin [Mucinex] 600 mg PO TID #120 tablet 05/10/17 Nebulizer and Compressor [Portable 1 each MC QID #1 each 05/11/17 Nebulizer System] HYDROcod/ACETAM 5/325 [Vicodin 1 - 2 ea PO Q6H PRN #20 tablet 08/13/17 5/325] - Allergies Allergies/Adverse Reactions: Allergies Allergy/AdvReac Type Severity Reaction Status Date / Time pollen extracts Allergy Mild Respiratory Verified 08/13/17 13:05 - Social History Does the pt smoke?: Yes Smoking Status: Current every day smoker Does the pt drink ETOH?: No Does the pt have substance abuse?: No - Immunizations Immunizations are current?: Yes - POLST Patient has POLST: No POLST Status: DNR PD ED PE NORMAL - Vitals Vital signs reviewed: Yes (borderline hypertension.) - General General: Alert and oriented X 3, Well developed/nourished, Other (Exhibits stigmata of long time cigarette smoking.) - HEENT HEENT: Atraumatic - Cardiac Cardiac: RRR - Respiratory Respiratory: No respiratory distress - Derm Derm: No rash - Extremities Extremities: No deformity, No tenderness to palpate, No edema, No calf tenderness / cord, Other (Dorsalis pedis pulse is faintly palpable in the right lower extremity.) - Neuro Neuro: Alert and oriented X 3, No motor deficit, No sensory deficit, Other ( Distal light touch sensation is intact.) Results - Vitals Vitals: Oxygen O2 Source Room air PD MEDICAL DECISION MAKING - ED course Complexity details: considered differential, d/w patient ED course: The patient's presentation is significant for right leg pain caused by peripheral vascular disease. There is no evidence of neurologic deficit. She is scheduled for vascular surgery. She is being discharged with prescription for Vicodin, 20 tablets. I discussed with her the potential risk of constipation when using narcotic medication, as well as potentially worrisome signs or symptoms that should prompt reevaluation in the emergency department. - Sepsis Event Vital Signs: Oxygen O2 Source Room air Departure - Departure Disposition: 01 Home, Self Care Clinical Impression: Vascular insufficiency of extremity Pain of lower extremity Qualifiers: Laterality: right Qualified Code(s): M79.604 - Pain in right leg Condition: Stable Instructions: ED PVD Follow-Up: Dayana Dickens MD [Primary Care Provider] - Prescriptions: HYDROcod/ACETAM 5/325 [Vicodin 5/325] 1 - 2 ea PO Q6H PRN #20 tablet PRN Reason: Pain Comments: You can use Vicodin as prescribed if needed for pain. Stay well hydrated. Follow up with the vascular surgeon as planned. Return to the emergency department if you develop increasing pain in your leg, or otherwise worsening symptoms. Discharge Date/Time: 08/13/17 15:15
== END 2017-08-13 15:15 | disposition home or self-care (01) ==
LOC: ED 12:51
DX: I73.9 Peripheral vascular disease, unspecified (principal); M79.604 Pain in right leg; I10 Essential (primary) hypertension; J44.9 Chronic obstructive pulmonary disease, unspecified; E03.9 Hypothyroidism, unspecified; Z87.19 Personal history of other diseases of the digestive system; M19.90 Unspecified osteoarthritis, unspecified site; Z79.82 Long term (current) use of aspirin; E78.00 Pure hypercholesterolemia, unspecified; F17.200 Nicotine dependence, unspecified, uncomplicated
CPT/HCPCS: 99283